=== PATIENT | female | born 1960 | race Caucasian/White ===

== ENCOUNTER → 2020-07-01 | Outpatient (CLI) | payer OTHER ==
[~2020-07-01] MED LIST: AMOXICILLIN 50500 M1 PO; CYMBALTA30 MG; DILAUDID2 M1 PO; FLEXERIL; LORTAB 5 MG/5001 TA1; MACROBID 100 M100 M1 PO; NOHOMEMEDICATIONS; PERCOCET 5-3251 EACH PO; ZOFRAN4 MG
== END ==
LOC: LAB 11:57
PROVIDERS: ATTEND Anesthesiology
DX: Z01.812 Encounter for preprocedural laboratory examination (principal); Z20.828 Contact with and (suspected) exposure to other viral communicable diseases